=== PATIENT | male | born 1935 | race Caucasian/White ===

== ENCOUNTER 2016-12-19 11:34 | Emergency (ER) | payer MEDICARE, BC ==
[~2016-12-19] VITALS: Ht 175.3 cm; Wt 93.0 kg
[~2016-12-19 11:34] MED LIST: ASPI81 PO; ATOR40TA49 PO; CARV6.252 PO; GABA100C2 PO; OMEP20TA39 PO; PIOG15 PO; RANO500 PO; TICA90 PO
[2016-12-19 11:41] VITALS: BP 115/75; PULSE 72; RESP 16; TEMP 97.4; O2SAT 95
--- NOTE | 2016-12-19 12:09 | PD ---
HPI Chief Complaint: Dizziness Time Seen by Provider: 11:49 Travel History International Travel<30 days: No Contact w/Intl Traveler<30days: No Traveled to known affect area: No History of Present Illness HPI This patient complains of dizziness. Duration one day. Severity is moderate. He has a room spinning dizziness but not worse with movement or position change. He has a chronic severe daily headache for the last 20 years and has had extensive neurologic workup including vascular imaging and CT and MRI of the brain 5. He currently sees a neurologist for this. He reports the headache is basically the same maybe a little worse. No fever or head injury. Takes no blood thinners. He is not having vomiting. No alleviating factors. PFSH Past Medical History Hx Anticoagulant Therapy: Yes (ASA 81 MG DAILY) Anxiety: Yes Depression: Yes Heart Rhythm Problems: No Cancer: No Cardiac Catheterization: Yes Cardiovascular Problems: Yes High Cholesterol: Yes Chest Pain: Yes Congestive Heart Failure: No Cerebrovascular Accident: No Diabetes: Yes Diminished Hearing: No Genitourinary: No Headaches: Yes (11/06 stress headaches ) Hypertension: Yes Immune Disorder: No Psychiatric: Yes Reproductive: No Respiratory: Yes Migraines: No Myocardial Infarction: Yes Sleep Apnea: Yes (attempted cpap at home w/o success) Past Surgical History Abdominal Surgery: No Body Medical Devices: clip from vasectomy Cardiac Surgery: Yes (CARDIAC CATH WITH STENTING DEC 2014) Coronary Artery Bypass Graft: No Coronary Stent: Yes (12/2014) Ear Surgery: No Endocrine Surgery: No Eye Surgery: Yes (right eye cataract) Genitourinary Surgery: No Gynecologic Surgery: No Oral Surgery: No Pacemaker: No Thoracic Surgery: No Other Surgery: Yes (back surgery 1977, eyelids raised 2011) Social History Alcohol Use: No Tobacco Use: No Substance Use: No Allergies-Medications (Allergen,Severity, Reaction): Coded Allergies: No Known Allergies (Unverified , 12/19/16) Reported Meds & Prescriptions Reported Meds & Active Scripts Active Reported Gabapentin 300 Mg Cap 300 Mg PO HS Losartan (Losartan Potassium) 25 Mg Tab 25 Mg PO HS Carvedilol 6.25 Mg Tab 6.25 Mg PO BID Atorvastatin (Atorvastatin Calcium) 40 Mg Tab 40 Mg PO HS Pioglitazone (Pioglitazone HCl) 15 Mg Tab 15 Mg PO DAILY Aspirin 81 Mg Chew 81 Mg CHEW DAILY Review of Systems General / Constitutional: No: Fever Eyes: No: Visual changes HENT: Positive: Headaches, Lightheadedness Cardiovascular: No: Chest Pain or Discomfort Respiratory: No: Shortness of Breath Gastrointestinal: No: Abdominal Pain Genitourinary: No: Dysuria Musculoskeletal: No: Pain Skin: No Rash Neurologic: Positive: Dizziness, Headache, No: Weakness Psychiatric: No: Depression Endocrine: No: Polydipsia Hematologic/Lymphatic: No: Easy Bruising Physical Exam Narrative GENERAL: Well-nourished, well-developed patient in no apparent distress. SKIN: Warm and dry. HEAD: Atraumatic. Normocephalic. EYES: Pupils equal and round. No scleral icterus. No injection or drainage. ENT: No nasal bleeding or discharge. Mucous membranes pink and moist. NECK: Trachea midline. No JVD. CARDIOVASCULAR: Regular rate and rhythm. No murmur appreciated. RESPIRATORY: No accessory muscle use. Clear to auscultation. Breath sounds equal bilaterally. GASTROINTESTINAL: Abdomen soft, non-tender, nondistended. Hepatic and splenic margins not palpable. MUSCULOSKELETAL: No obvious deformities. No clubbing. No cyanosis. No edema. NEUROLOGICAL: Awake and alert. No obvious cranial nerve deficits. Motor grossly within normal limits. Normal speech. PSYCHIATRIC: Appropriate mood and affect; insight and judgment normal. Data Data Last Documented VS Vital Signs Date Time Temp Pulse Resp B/P Pulse Ox O2 Delivery O2 Flow Rate FiO2 12/19/16 13:04 58 16 107/65 97 Room Air 12/19/16 12:11 98.3 Orders Basic Metabolic Panel (Bmp) (12/19/16 12:05) Complete Blood Count With Diff (12/19/16 12:05) Ct Brain W/O Iv Contrast(Rout) (12/19/16 12:05) Ecg Monitoring (12/19/16 12:05) Iv Access Insert/Monitor (12/19/16 12:05) Oximetry (12/19/16 12:05) Sodium Chloride 0.9% Flush (Ns Flush) (12/19/16 12:15) Meclizine (Antivert) (12/19/16 12:15) Labs Laboratory Tests Test 12/19/16 12:00 White Blood Count 7.8 TH/MM3 Red Blood Count 4.59 MIL/MM3 Hemoglobin 14.5 GM/DL Hematocrit 42.3 % Mean Corpuscular Volume 92.0 FL Mean Corpuscular Hemoglobin 31.6 PG Mean Corpuscular Hemoglobin 34.3 % Concent Red Cell Distribution Width 12.7 % Platelet Count 182 TH/MM3 Mean Platelet Volume 10.1 FL Neutrophils (%) (Auto) 60.4 % Lymphocytes (%) (Auto) 22.8 % Monocytes (%) (Auto) 13.5 % Eosinophils (%) (Auto) 2.6 % Basophils (%) (Auto) 0.7 % Neutrophils # (Auto) 4.7 TH/MM3 Lymphocytes # (Auto) 1.8 TH/MM3 Monocytes # (Auto) 1.0 TH/MM3 Eosinophils # (Auto) 0.2 TH/MM3 Basophils # (Auto) 0.1 TH/MM3 CBC Comment DIFF FINAL Differential Comment Sodium Level 143 MEQ/L Potassium Level 4.1 MEQ/L Chloride Level 106 MEQ/L Carbon Dioxide Level 28.5 MEQ/L Anion Gap 9 MEQ/L Blood Urea Nitrogen 27 MG/DL Creatinine 1.10 MG/DL Estimat Glomerular Filtration 65 ML/MIN Rate Random Glucose 149 MG/DL Calcium Level 8.6 MG/DL [facility] Medical Decision Making Medical Screen Exam Complete: Yes Emergency Medical Condition: Yes Medical Record Reviewed: Yes Differential Diagnosis Positional vertigo, labyrinthitis, migraine, chronic headache Narrative Course I have reviewed the patient's electronic medical record. IV placed CBC is normal Metabolic profile is normal I reviewed his EKG which shows sinus rhythm without ectopy or ST elevation He is neurologically intact I gave him a dose of meclizine Brain CT is normal this patient is stable for outpatient follow-up. His headache is chronic daily for 20 years He does have some position change now that he thinks about it and has a room spinning dizziness consistent with positional vertigo He is neurologically intact, I'm not suspicious for CVA Diagnosis Primary Impression: Benign positional vertigo Qualified Code: H81.13 - Benign positional vertigo, bilateral Additional Impression: Headache Qualified Code: R51 - Chronic nonintractable headache, unspecified headache type Additional Instructions: The patient was advised to follow up with their physician and return if they worsen. Med/Other Pt SpecificInfo: Other Disposition: 01 DISCHARGE HOME Condition: Stable Iam Serrano MD Dec 19, 2016 12:09
[2016-12-19 12:10] VITALS: RESP 16; O2SAT 96
[2016-12-19 12:11] VITALS: BP 131/74; PULSE 64; RESP 16; TEMP 98.3; O2SAT 96
[2016-12-19] MEDS ORDERED: CARV6.252 PO (12:14)
[2016-12-19] MEDS ORDERED: GABA300C5 PO (12:14)
[2016-12-19] MEDS ORDERED: LOSA25TA PO (12:14)
[2016-12-19] MEDS ORDERED: PIOG15TA5 PO (12:14)
[2016-12-19] MEDS ORDERED: ATOR40TA16 PO (12:14)
[2016-12-19] MEDS ORDERED: ASPI81CH CHEW (12:14)
[2016-12-19] MEDS ORDERED: MECLIZINE HCL 25 MG TAB PO ONE (12:15)
[2016-12-19] MEDS ORDERED: SODIUM CHLORIDE 0.9% FLUSH 5 ML FLUSH IVF PRN (12:15)
[2016-12-19 12:55] LABS: POTASSIUM 4.1 MEQ/L (3.5-5.1)
--- NOTE | 2016-12-19 12:55 | RADHPO ---
EXAM DATE/TIME: 12/19/2016 12:39 [facility] COMPARISON: No previous studies available for comparison. INDICATIONS : Dizziness. RADIATION DOSE: 57.24 CTDIvol (mGy) MEDICAL HISTORY : Cardiovascular disease. Hypertension. Diabetes. SURGICAL HISTORY : Coronary artery stent. Bilateral cataract surgery. ENCOUNTER: Initial ACUITY: 1 day PAIN SCALE: 0/10 LOCATION: cranial TECHNIQUE: Multiple contiguous axial images were obtained of the head. Using automated exposure control and adj ustment of the mA and/or kV according to patient size, radiation dose was kept as low as reasonably a chievable to obtain optimal diagnostic quality images. FINDINGS: CEREBRUM: The ventricles are normal for age. Mild bilateral cortical atrophy characteristic for patient's age. No evidence of midline shift, mass lesion, hemorrhage or acute infarction. No extra-axial fluid eunice ections are seen. POSTERIOR FOSSA: The cerebellum and brainstem are intact. The 4th ventricle is midline. The cerebellopontine angle i s unremarkable. EXTRACRANIAL: The visualized portion of the orbits is intact. SKULL: The calvaria is intact. No evidence of skull fracture. CONCLUSION: Normal examination for a patient of this age. Alexandro Slaughter MD on December 19, 2016 at 12:53 Board Certified Radiologist. This report was verified electronically.
[2016-12-19 12:58] LABS: BICARBONATE 28.5 MEQ/L (21.0-32.0)
[2016-12-19 13:04] VITALS: BP 107/65; PULSE 58; RESP 16; O2SAT 97
[2016-12-19 13:34] LABS: AUTOMATED NEUTROPHIL # 4.7 TH/MM3 (1.8-7.7); BASOPHIL # 0.1 TH/MM3 (0-0.2); BASOPHIL % 0.7 % (0.0-2.0); EOSINOPHIL # 0.2 TH/MM3 (0-0.4); EOSINOPHIL % 2.6 % (0.0-4.0); HEMATOCRIT 42.3 % (39.0-51.0); HEMO FLAGS DIFF FINAL; LYMPH % 22.8 % (9.0-44.0); LYMPHOCYTE # 1.8 TH/MM3 (1.0-4.8); MEAN CORPUSCULAR HEMOGLOBIN 31.6 PG (27.0-34.0); MEAN CORPUSCULAR HGB CONC 34.3 % (32.0-36.0); MONO % 13.5 % (0.0-8.0); NEUT % 60.4 % (16.0-70.0); PLATELET COUNT 182 TH/MM3 (150-450); RED BLOOD COUNT 4.59 MIL/MM3 (4.50-5.90); RED CELL DISTRIBUTION WIDTH 12.7 % (11.6-17.2); WHITE BLOOD COUNT 7.8 TH/MM3 (4.0-11.0)
[2016-12-19 14:21] VITALS: BP 118/76
--- NOTE | 2016-12-20 16:00 | EKG ---
Date Performed: 12/19/2016 Time Performed: 11:56:56 PTAGE: 81 years EKG: Sinus rhythm Low QRS voltages in limb leads Compared to prior tracing no significant change Borderline ECG PREVIOUS TRACING : 03/06/2015 01.29 DOCTOR: Jero Stoll Interpretating Date/Time 12/20/2016 15:57:05
== END 2016-12-19 14:23 | disposition home or self-care (01) ==
LOC: PHED 11:34
DX: H81.13 Benign paroxysmal vertigo, bilateral (principal); R51 Headache; F41.8 Other specified anxiety disorders; E78.00 Pure hypercholesterolemia, unspecified; E11.9 Type 2 diabetes mellitus without complications; I10 Essential (primary) hypertension; I25.2 Old myocardial infarction; Z79.82 Long term (current) use of aspirin
CPT/HCPCS: 70450; 80048; 85025; 93005

== ENCOUNTER → 2017-09-24 | Outpatient (CLI) | payer MEDICARE, BC ==
[~2017-09-24] MED LIST changes: +ADJUSTABLE COMM1 MIS; +ASPI-516 CHEW; -ASPI81 PO; +ATOR40TA16 PO; -ATOR40TA49 PO; -GABA100C2 PO; +GABA300C5 PO; +HYDR-3580 PO; +LOSA25TA PO; +METO1TAB42 PO; -OMEP20TA39 PO; -PIOG15 PO; +PIOG15TA5 PO; -RANO500 PO; -TICA90 PO; +WALKER WHEELS/F1 MIS; +XARE10TA PO
[2017-09-24 09:13] LABS: BLOOD, URINE NEG (NEG); COMMENT (UR) CULT NOT INDICATED; CULTURE IF INDICATED CULT NOT INDICATED; GLUCOSE,URINE NEG (NEG); HYALINE CAST, URINE 1 /lpf (RARE); KETONE, URINE NEG (NEG); MUCUS URINE FEW /lpf (OCC); NITRITE,URINE NEG (NEG); PH, URINE 5.5 (5.0-8.5); SQUAMOUS EPITHELIAL CELL URINE <1 /hpf (0-5); URINE COLOR YELLOW (YELLW/STRAW)
[2017-09-24 09:14] LABS: AUTOMATED NEUTROPHIL # 5.6 TH/MM3 (1.8-7.7); BASOPHIL # 0.1 TH/MM3 (0-0.2); BASOPHIL % 0.8 % (0.0-2.0); EOSINOPHIL # 0.2 TH/MM3 (0-0.4); HEMATOCRIT 44.2 % (39.0-51.0); HEMO FLAGS DIFF FINAL; LYMPH % 21.2 % (9.0-44.0); LYMPHOCYTE # 1.9 TH/MM3 (1.0-4.8); MEAN CELL VOLUME 93.9 FL (80.0-100.0); MEAN CORPUSCULAR HEMOGLOBIN 31.6 PG (27.0-34.0); MEAN CORPUSCULAR HGB CONC 33.7 % (32.0-36.0); MONO % 12.7 % (0.0-8.0); NEUT % 63.3 % (16.0-70.0); PLATELET COUNT 189 TH/MM3 (150-450); RED BLOOD COUNT 4.71 MIL/MM3 (4.50-5.90); RED CELL DISTRIBUTION WIDTH 13.4 % (11.6-17.2); WHITE BLOOD COUNT 8.8 TH/MM3 (4.0-11.0)
[2017-09-24 09:20] LABS: APTT (PATIENT) 28.1 SEC (24.3-30.1)
[2017-09-24 09:43] LABS: BICARBONATE 28.9 MEQ/L (21.0-32.0)
== END ==
LOC: CPRE 07:59
PROVIDERS: ATTEND Orthopaedic Surgery Orthopaedic Surgery of the Spine
DX: Z01.812 Encounter for preprocedural laboratory examination (principal); M16.12 Unilateral primary osteoarthritis, left hip; Z79.01 Long term (current) use of anticoagulants
CPT/HCPCS: 36415; 80048; 81001; 85025; 85610; 85730

== ENCOUNTER 2017-10-02 08:22 | Inpatient (IN) | payer MEDICARE, BC ==
[~2017-10-02] VITALS: Ht 175.3 cm; Wt 90.0 kg
[~2017-10-02 08:22] MED LIST changes: -ADJUSTABLE COMM1 MIS; -HYDR-3580 PO; -METO1TAB42 PO; -WALKER WHEELS/F1 MIS; -XARE10TA PO
[2017-10-02] MEDS ORDERED: METOPROLOL TARTRATE 25 MG TAB PO PRN (08:45)
[2017-10-02] MEDS ORDERED: VANCOMYCIN 1000 MG/NS 250 ML (for <70 kg) IV SCH ×2 (08:45)
[2017-10-02] MEDS ORDERED: POVIDONE IODINE 7.5% SCRUB 118 ML BOTTLE TOPICAL SCH (08:45)
[2017-10-02] MEDS ORDERED: ceFAZolin 2 GM PREMIX 50 ML IV SCH (08:45)
[2017-10-02] MEDS ORDERED: SODIUM CHLORID 0.9% 500 ML IV PRN (08:45)
[2017-10-02] MEDS ORDERED: INSULIN HUMAN REGULAR 1,000 UNITS/10 ML VIAL SQ PRN (08:45)
[2017-10-02] MEDS ORDERED: LACTATED RINGER'S 1000 ML IV PRN (08:45)
[2017-10-02] MEDS ORDERED: POVIDONE IODINE 5% (ANTISEPSIS KIT) 4 APPLICATIONS EACH NARE PRN (08:45)
[2017-10-02] MEDS ORDERED: CHLORHEXIDINE GLUCONATE 2 % 1 PACK (2 CLOTHS) TOPICAL PRN (08:45)
[2017-10-02] MEDS ORDERED: SODIUM CHLORIDE 0.9% IV SCH (09:00)
[2017-10-02] MEDS ORDERED: TRANEXAMIC ACID IV SCH (09:00)
[2017-10-02] MEDS ORDERED: EXPAREL PERI-ARTICULAR INJECTION (TOTAL VOL. 60 ML) P-ARTICULR SCH ×2 (09:00)
[2017-10-02] MEDS ORDERED: METO1TAB42 PO (09:13)
[2017-10-02] MEDS ORDERED: HYDROmorphone HCL PF 2 MG/ML VIAL ONE (10:39)
[2017-10-02] MEDS ORDERED: GENTAMICIN SULFATE 80 MG/2 ML VIAL ONE (11:30)
[2017-10-02] MEDS ORDERED: PHENYLEPH/NS 1000 MCG/10 ML SYR IV ONE (12:00)
[2017-10-02] MEDS ORDERED: PROPOFOL 200 MG/20 ML AMP IV ONE (12:00)
[2017-10-02] MEDS ORDERED: DEXAMETHASONE SOD PHOS 4 MG/ML VIAL IV ONE (12:00)
[2017-10-02] MEDS ORDERED: NEOSTIGMINE 3 MG/3 ML SYR IV ONE (12:00)
[2017-10-02] MEDS ORDERED: LIDOCAINE HCL 1% PF 5 ML AMPULE OTHER ONE (12:00)
[2017-10-02] MEDS ORDERED: ePHEDrine/NS 25 MG/5 ML SYR IV ONE (12:00)
[2017-10-02] MEDS ORDERED: GLYCOPYRROLATE 1 MG/5 ML SYRINGE IV PUSH ONE (12:00)
[2017-10-02] MEDS ORDERED: ROCURONIUM INJ 50 MG/5 ML SYRINGE IV PUSH ONE (12:00)
[2017-10-02] MEDS ORDERED: LACTATED RINGER'S 1000 ML INJ 1,000 ML IV ONE (12:00)
[2017-10-02] MEDS ORDERED: ONDANSETRON HCL 4 MG/2 ML VIAL IV PUSH ONE (12:00)
--- NOTE | 2017-10-02 13:43 | PD.OP ---
cc: Dayo Francisco MD Operative Report Date of Surgery: Oct 02, 2017 Preoperative Diagnosis: Right his left hip Postoperative Diagnosis: Same Procedure: Left total hip replacement arthroplasty, anterior exposure Anesthesia: Gen. Surgeon: Dayo Francisco [employer] Teacher(s): LUPE Powell Operation and Findings: EBL: 450 cc INDICATION: This patient presents with significant hip pain related to severe osteoarthritis. Despite extensive conservative care this patient continues to be painful and now presents for surgical treatment. NOTE: Lacey Powell PA-C was present for the entire surgical procedure as my professional nursing assistant. In my medical opinion her skill and care was necessary for the proper management of this patient. COMPONENTS: COMPANY: [employer] CUP: [place], 56 mm, 100 series, gription surface LINER: Altrx 36, neutral STEM: Corail, size 12, high offset, hydroxyapatite-coated HEAD: Metal, 36, +5, 12/14 taper PROCEDURE: This patient was brought to the operating room and anesthetized in the supine position and positioned on the fracture table with both legs held extended. The left hip and leg was scrubbed with alcohol followed by Hibiclens followed by ChloraPrep and draped sterilely. Antibiotics were given within routine time window and a timeout was done. A 4 inch incision was made starting 2 cm distal and 2 cm lateral to the anterior superior iliac spine. The fascia rosaura was opened longitudinally. The interval between the fascia rosaura and the rectus was opened down to the capsule of the hip joint. Retractors were positioned allowing good visualization of the capsule. This was opened longitudinally and flaps were created. Stay sutures were utilized. Exposure was excellent. The neck was cut at the proper location using fluoroscopy as a guide. The head was removed. Deep retractors were positioned allowing good visualization of the acetabulum. Acetabulum was deepened down to the floor starting with a proper size reamer and reaming up to 55 mm. A trial was utilized. Fluoroscopy was used to check position and confirmed satisfactory alignment. The rim was reamed with a 56 mm reamer and the final cup was positioned in approximately 20 of anteversion and 40-45 of abduction. Position was satisfactory. A single hole eliminator was positioned followed by the final liner. The lifting hook was utilized. The leg was dropped to the floor, maximally externally rotated and brought across the midline. Retractors were positioned. A box osteotome was utilized followed by progressive broaching to the proper stem size. Trial reduction showed excellent alignment and fit. With 60 of external rotation the leg was dropped to the floor without evidence of anterior subluxation. The wound was irrigated. The final stem was inserted and was found to be very stable. The final reduction using the final head. Stability was as previously noted. Intraoperative x-rays were taken. The wound was irrigated copiously. Hemostasis was controlled. Local anesthesia was utilized. The capsule was repaired with #2 Tycron sutures. The fascia rosaura was repaired with running 0 PDS on a loop. Subcutaneous tissue was approximated with 2-0 Vicryl and skin with running intradermal 3-0 Vicryl followed by Steri-Strips. A sterile dressing was applied. The patient was awakened and taken to the recovery room in satisfactory condition. FINDINGS: There was severe osteoarthritis of the left hip. The final solution was excellent. There was some mismatch of geometry with a tight canal and a champagne flute type geometry. Additional bone grafting was placed around the stem proximally to ensure and even tighter fit. The overall solution appeared be very satisfactory Dayo Francisco MD Oct 02, 2017 13:43
[2017-10-02] MEDS ORDERED: ACETAMINOPHEN/HYDROcodone 325 MG/7.5 MG TAB PO PRN (13:45)
[2017-10-02] MEDS ORDERED: MISCELLANEOUS NURSING INFORMATION XX PRN (13:45)
[2017-10-02] MEDS ORDERED: MORPHINE SULFATE 8 MG/ML INJ IM PRN (13:45)
[2017-10-02] MEDS ORDERED: NALOXONE HCL 0.4 MG/ML AMP IV PUSH PRN (13:45)
[2017-10-02] MEDS ORDERED: Post-op Orders (for Pharmacy) MISC XX ONE (13:45)
[2017-10-02] MEDS ORDERED: XARE10TA PO (13:46)
[2017-10-02] MEDS ORDERED: HYDR-3580 PO (13:46)
[2017-10-02] MEDS ORDERED: DO NOT ADM ANY ANTICOAGULANT DRUGS PRN (13:51)
[2017-10-02] MEDS ORDERED: MORPHINE SULFATE 30 MG/30 ML PCA IV SCH (14:00)
[2017-10-02] MEDS ORDERED: SODIUM CHLORIDE 0.9% FLUSH 10 ML FLUSH IV FLUSH PRN (14:00)
[2017-10-02] MEDS ORDERED: TRANEXAMIC ACID IV ONE (14:30)
[2017-10-02] MEDS ORDERED: SODIUM CHLORIDE 0.9% IV ONE (14:30)
--- NOTE | 2017-10-02 14:30 | RADRPT ---
EXAM DATE/TIME: 10/02/2017 11:53 [facility] COMPARISON: No previous studies available for comparison. INDICATIONS : Left total hip replacement. MEDICAL HISTORY : Cardiovascular disease. Hypertension. Diabetes. SURGICAL HISTORY : Coronary artery stent. Bilateral cataract surgery. ENCOUNTER: Initial ACUITY: 1 day PAIN SCORE: Non-responsive. LOCATION: Left Hip FINDINGS: 2 magnified C. arm spot views are centered over the hip and labeled left. A total hip prosthesis is i n good position. No gross fractures observed. Air is noted within the joint. CONCLUSION: Total hip prosthesis in good position. William Chase Jr., MD on October 02, 2017 at 14:27 Board Certified Radiologist. This report was verified electronically.
[2017-10-02] MEDS: LACTATED RINGER'S 1000 ML INJ 1,000 ML IV SCH (15:00)
[2017-10-02 15:59] VITALS: BP 101/50; PULSE 67; RESP 17; TEMP 95.3; O2SAT 97
[2017-10-02 20:36] VITALS: BP 118/58; PULSE 76; RESP 17; TEMP 96.4; O2SAT 97
[2017-10-02 20:41] VITALS: O2SAT 97
[2017-10-02] MEDS ORDERED: WALKER WHEELS/F1 MIS (20:49)
[2017-10-02] MEDS ORDERED: ADJUSTABLE COMM1 MIS (20:50)
--- NOTE | 2017-10-02 20:50 | HHI.DCPOC ---
Discharge Care Plan Diagnosis: (1) Osteoarthritis of left hip Your Health Problems Are: Incision/Drains Inflammation Goals to Promote Your Health * To prevent worsening of your condition and complications * To maintain your health at the optimal level Directions to Meet Your Goals Take your medications as prescribed Follow your dietary instruction Follow activity as directed Keep your appointments as scheduled Take your immunizations and boosters as scheduled If your symptoms worsen call your PCP, if no PCP go to Urgent Care Center or Emergency Room Smoking is Dangerous to Your Health. Avoid second hand smoke Call the 24-hour hour crisis hotline for domestic abuse at Kaylee De La Cruz Oct 02, 2017 20:50
--- NOTE | 2017-10-02 20:56 | HHI.DS ---
Discharge Summary Admission Date Oct 02, 2017 at 08:22 Discharge Date: Oct 04, 2017 Admitting Diagnosis see below Diagnosis: (1) Osteoarthritis of left hip Diagnosis: Principal ICD Codes: M16.12 - Unilateral primary osteoarthritis, left hip Procedures Left total hip arthroplasty, Direct anterior approach Brief History This is a 81 year old male patient with a multi-year history of left hip pain. This began to increase approximately 1 1/2 years ago. He sought out treatment for an inguinal hernia but after surgical repair found his groin pain to continue. He was treated for a low back condition which called for further investigation of the pelvic structures. Xrays of the hip and pelvis were performed showing substantial hip arthritis. He had a cortisone injection which provided little relief. He continued to use over the counter medications and also sought out home health care worker. [place] it was recommended he consider total hip arthroplasty. He declined at the time as he would be returning to [place]. On return, imaging studies were repeated. Left total hip arthroplasty, direct anterior approach, was recommended and the patient elected to move forward. He now presents for the above procedure. Hospital Course Surgical treatment was performed on the day of admission without complication. He recovered well in PACU and was transferred to the orthopaedic floor. Pain was controlled with IV and oral medications. DVT prophylaxis was initiated pod# 1 with Xarelto. He was compliant with physical therapy and all restrictions including GEMINI protocols. After 2 days he was found to be stable and discharged home with home health care. He was instructed to continue his therapy, pursue a high fiber diet and to continue his xarelto for an additional 30 days. He was given a prescription of [place] for pain. Pt Condition on Discharge: Stable Discharge Disposition: Disch w/ Home Health Serv Discharge Instructions Diet Instructions: As Tolerated, No Restrictions, High Fiber Diet Activities You Can Perform: Weight Bearing as Casey Activities to Avoid: Strenuous Activity Additional Activity Instruc.: GEMINI, anterior precautions New Medications: Adjustable Commode 3-in-1 (Adjustable Commode 3-in-1) 1 Mis Mis EA .ROUTE DIRECTED, #1 Walker with Front Wheels (Walker with Front Wheels) 1 Mis Mis EA .ROUTE DIRECTED, #1 0 Refills Hydrocodone/Acetaminophen (Hydrocodone-Acetamin 7.5-325) 7.5 Mg-325 Mg Tablet 1 TAB PO Q4H PRN for PAIN, #50 TAB Rivaroxaban (Xarelto) 10 Mg Tab 10 MG PO Q24H for Prevent Blood Clot, #25 TAB Continued Medications: Aspirin (Aspirin) 81 Mg Chew 81 MG CHEW DAILY, TAB 0 Refills Atorvastatin (Atorvastatin) 40 Mg Tab 40 MG PO HS for Cholesterol Management, #30 TAB 0 Refills Gabapentin (Gabapentin) 300 Mg Cap 300 MG PO HS, #30 CAP 0 Refills Losartan (Losartan) 25 Mg Tab 25 MG PO HS for Blood Pressure Management, #30 TAB 0 Refills Metoprolol Succinate ER 24 HR (Metoprolol Succinate ER 24 HR) 25 Mg Tab 25 MG PO DAILY, #30 TAB 0 Refills Pioglitazone (Pioglitazone) 15 Mg Tab 15 MG PO DAILY for Blood Sugar Management, #30 TAB 0 Refills Kaylee De La Cruz Oct 02, 2017 20:56
--- NOTE | 2017-10-02 20:58 | HHI.FF ---
Face to Face Verification Diagnosis: (1) Osteoarthritis of left hip Physical Therapy Gait training, Safety evaluation, Transfer training, bed to chair Hip: Total hip, Progress to weight bearing Knee: Protocol: Right Left LE Weight Bearing: WB as tolerated Additional Instructions PT 4 days/wk for 2 weeks. WBAT Left LE. Anterior GEMINI protocol. Improve gait and balance, LE strengthening. Walker as needed. Nursing RN Days per Week: 2 x Week(s): 1 Dressing Changes: Do not change dressing Additional Instructions VItals assessment. Dressing assessment - do not change unless saturated or erythema. I have seen patient Marco A Marcelo, III on 10/02/17. My clinical findings support the need for the requested home health care services because: Limited ability to care for self High risk of falls I certify that my clinical findings support that this patient is homebound because: Post-op weakness Unsteady gait/balance Kaylee De La Cruz Oct 02, 2017 20:58
[2017-10-02] MEDS: LOSARTAN 25 MG TAB PO SCH (21:36)
[2017-10-02] MEDS: MAGNESIUM HYDROXIDE SUSP 30 ML CUP PO SCH (21:36)
[2017-10-02] MEDS: ATORVASTATIN 40 MG TAB PO SCH (21:36)
[2017-10-02] MEDS: GABAPENTIN 300 MG CAP PO SCH (21:36)
[2017-10-02] MEDS: SODIUM CHLORIDE 0.9% FLUSH 10 ML FLUSH IV FLUSH SCH (21:37)
[2017-10-02] MEDS: SENNOSIDES 8.6 MG TAB PO SCH (21:37)
[2017-10-02] MEDS: PCA - TOTAL MG MORPHINE DELIVERED PER SHIFT SCH (21:37)
[2017-10-03 00:31] VITALS: BP 119/59; PULSE 86; RESP 17; TEMP 96.7; O2SAT 97
[2017-10-03] MEDS: LACTATED RINGER'S 1000 ML INJ 1,000 ML IV SCH ×2 (02:30→15:00)
[2017-10-03 04:27] VITALS: BP 112/56; PULSE 92; RESP 17; TEMP 96.7; O2SAT 97
[2017-10-03] MEDS: PCA - TOTAL MG MORPHINE DELIVERED PER SHIFT SCH ×2 (05:54→14:00)
[2017-10-03 07:41] VITALS: BP 102/51; PULSE 97; RESP 18; TEMP 98.3; O2SAT 99
[2017-10-03 08:55] LABS: HEMATOCRIT 32.7 % (39.0-51.0); REVIEW FLAG FINAL
[2017-10-03] MEDS: SODIUM CHLORIDE 0.9% FLUSH 10 ML FLUSH IV FLUSH SCH ×2 (09:00→20:47)
[2017-10-03] MEDS: METOPROLOL SUCCINATE 25 MG EXTENDED RELEASE TAB PO SCH (09:43)
[2017-10-03] MEDS: MAGNESIUM HYDROXIDE SUSP 30 ML CUP PO SCH ×2 (09:43→20:47)
[2017-10-03] MEDS: PIOGLITAZONE HCL 15 MG TAB PO SCH (09:43)
[2017-10-03 12:00] VITALS: BP 125/63; PULSE 96; RESP 18; TEMP 98.7; O2SAT 93
--- NOTE | 2017-10-03 13:47 | PD.ORT.PN ---
Subjective Subjective Remarks Patient states he has limited his use of pain pills. He was very sore w PT this morning but has not taken anything since. He has his teague cath removed 2- 3 hours ago and has not urinated since that time. No other complaints. Questions discharge today or tomorrow. He denies any new symptoms, chest pain or shortness of breath. Objective Vitals Vital Signs Date Time Temp Pulse Resp B/P (MAP) Pulse Ox O2 Delivery O2 Flow Rate FiO2 10/03/17 13:05 21 10/03/17 12:00 98.7 96 18 125/63 (83) 93 10/03/17 07:41 98.3 97 18 102/51 (68) 99 10/03/17 05:54 18 10/03/17 04:27 96.7 92 17 112/56 (74) 97 10/03/17 00:31 96.7 86 17 119/59 (79) 97 10/02/17 21:37 18 10/02/17 20:41 97 Nasal Cannula 2.00 10/02/17 20:36 96.4 76 17 118/58 (78) 97 10/02/17 15:59 95.3 67 17 101/50 (67) 97 10/02/17 15:29 97.7 73 12 100/53 (69) 98 Nasal Cannula 2 10/02/17 15:15 63 14 107/55 (72) 98 Nasal Cannula 2 10/02/17 15:01 15 10/02/17 15:00 65 14 100/47 (64) 98 Nasal Cannula 2 10/02/17 14:45 61 18 111/54 (73) 97 Nasal Cannula 2 10/02/17 14:30 60 15 128/57 (80) 96 Nasal Cannula 2 10/02/17 14:15 65 18 95/53 (67) 97 Nasal Cannula 2 10/02/17 14:00 77 16 121/61 (81) 97 Nasal Cannula 2 10/02/17 13:57 97.5 87 16 143/64 (90) 97 Nasal Cannula 2 I/O 10/02/17 10/02/17 10/02/17 10/03/17 10/03/17 10/03/17 07:00 15:00 23:00 07:00 15:00 23:00 Intake Total 1450 ml 572 ml 240 ml Output Total 3800 ml 400 ml 550 ml Balance -2350 ml 172 ml -310 ml Intake Oral 240 ml 240 ml IV Total 1450 ml 332 ml Output Urine Total 350 ml 400 ml 550 ml Estimated Blood Loss 450 ml Other 3000 ml # Bowel Movements 0 0 Result Diagram: 10/03/17 0728 Procedures Left total hip arthroplasty, Direct anterior approach Objective Remarks Sitting up in bed at bedside NAD LLE Dressing c/d/i, no new drainage, mild swelling, no erythema +motor at bilaterally, +sens, +nvi Neg homans bilaterally Assessment & Plan Ortho Post Op Day #: 1 Problem List: (1) Osteoarthritis of left hip ICD Codes: M16.12 - Unilateral primary osteoarthritis, left hip Qualifiers: Qualified Codes: M16.12 - Unilateral primary osteoarthritis, left hip Assessment and Plan pod#1 s/p L GEMINI, anterior Ortho stable. Possible urinary retention. I spoke to his RN. If he does not urinate in the next 6 hours consider bladder scan and straight cath. PO pain meds as needed. PT - WBAT RLE. Xarelto 10mg qd. Hold dressing changes unless saturated. D/C planning, home w [facility] tomorrow if stable. F2F written. Kaylee De La Cruz Oct 03, 2017 13:47
[2017-10-03] MEDS ORDERED: MISCELLANEOUS PHARMACY INFORMATION XX ONE (14:00)
[2017-10-03] MEDS: RIVAROXABAN 10 MG TAB PO SCH (15:31)
[2017-10-03] MEDS: ACETAMINOPHEN/HYDROcodone 325 MG/7.5 MG TAB PO PRN ×2 (15:31→23:44)
[2017-10-03 16:00] VITALS: BP 139/64; PULSE 97; RESP 18; TEMP 97; O2SAT 95
[2017-10-03] MEDS: GABAPENTIN 300 MG CAP PO SCH (20:46)
[2017-10-03] MEDS: SENNOSIDES 8.6 MG TAB PO SCH (20:46)
[2017-10-03] MEDS: LOSARTAN 25 MG TAB PO SCH (20:46)
[2017-10-03] MEDS: ATORVASTATIN 40 MG TAB PO SCH (20:47)
[2017-10-04] VITALS: BP 112/62; PULSE 88; RESP 16; TEMP 99.4; O2SAT 92
[2017-10-04] MEDS: LACTATED RINGER'S 1000 ML INJ 1,000 ML IV SCH (03:30)
[2017-10-04 08:00] VITALS: BP 112/72; PULSE 83; RESP 17; TEMP 99.8; O2SAT 94
--- NOTE | 2017-10-04 08:26 | PD.ORT.PN ---
Subjective Subjective Remarks Doing better today. Urinating well. Still limiting his use of pain pills but they are helpful. No other complaints. He denies any new symptoms, chest pain or shortness of breath. He is ready for discharge Objective Vitals Vital Signs Date Time Temp Pulse Resp B/P (MAP) Pulse Ox O2 Delivery O2 Flow Rate FiO2 10/04/17 08:00 99.8 83 17 112/72 (85) 94 10/04/17 00:00 99.4 88 16 112/62 (79) 92 10/03/17 19:45 21 10/03/17 16:41 16 10/03/17 16:00 97.0 97 18 139/64 (89) 95 10/03/17 14:00 16 10/03/17 13:05 21 10/03/17 12:00 98.7 96 18 125/63 (83) 93 I/O 10/03/17 10/03/17 10/03/17 10/04/17 10/04/17 10/04/17 07:00 15:00 23:00 07:00 15:00 23:00 Intake Total 440 ml 600 ml 480 ml Output Total 550 ml 300 ml Balance -110 ml 300 ml 480 ml Intake Oral 240 ml 600 ml 480 ml IV Total 200 ml Output Urine Total 550 ml 300 ml # Voids 3 # Bowel Movements 0 0 0 Result Diagram: 10/03/17 0728 Procedures Left total hip arthroplasty, Direct anterior approach Objective Remarks Sitting up in bed NAD LLE Dressing c/d/i, no drainage, mild swelling, no erythema +motor at bilaterally, +sens, +nvi Neg homans bilaterally Assessment & Plan Ortho Post Op Day #: 2 Problem List: (1) Osteoarthritis of left hip ICD Codes: M16.12 - Unilateral primary osteoarthritis, left hip Qualifiers: Qualified Codes: M16.12 - Unilateral primary osteoarthritis, left hip Assessment and Plan pod#2 s/p L GEMINI, anterior Ortho stable. Ok to d/c home today after PT. Home w [facility]. Urinary retention resolved. Satisfactory output last 24 hours. PO pain meds as needed. PT - WBAT RLE. Xarelto 10mg qd. Hold dressing changes unless saturated. F/U in 2 weeks as scheduled. F2F written. Kaylee De La Cruz Oct 04, 2017 08:26
[2017-10-04] MEDS: SODIUM CHLORIDE 0.9% FLUSH 10 ML FLUSH IV FLUSH SCH (09:00)
[2017-10-04] MEDS: MAGNESIUM HYDROXIDE SUSP 30 ML CUP PO SCH (10:41)
[2017-10-04] MEDS: METOPROLOL SUCCINATE 25 MG EXTENDED RELEASE TAB PO SCH (10:41)
[2017-10-04] MEDS: PIOGLITAZONE HCL 15 MG TAB PO SCH (10:41)
[2017-10-04] MEDS: ACETAMINOPHEN/HYDROcodone 325 MG/7.5 MG TAB PO PRN ×2 (11:56→15:56)
[2017-10-04 12:00] VITALS: BP 110/71; PULSE 94; RESP 17; TEMP 99.4; O2SAT 94
[2017-10-04] MEDS: RIVAROXABAN 10 MG TAB PO SCH (13:40)
[2017-10-04] MEDS: SENNOSIDES 8.6 MG TAB PO SCH (15:48)
== END 2017-10-04 16:09 | disposition home health service (06) | DRG 470 ==
LOC: HSDI 08:22 → N06A 15:39
PROVIDERS: ADMIT Orthopaedic Surgery Orthopaedic Surgery of the Spine; ATTEND Orthopaedic Surgery Orthopaedic Surgery of the Spine
PROC: 0SRB01A Replacement of Left Hip Joint with Metal Synthetic Substitute, Uncemented, Open Approach (ICD-10-PCS; principal; 2017-10-02 10:42)
DX: M16.12 Unilateral primary osteoarthritis, left hip (principal); E11.9 Type 2 diabetes mellitus without complications; I10 Essential (primary) hypertension; E78.00 Pure hypercholesterolemia, unspecified; M47.817 Spondylosis without myelopathy or radiculopathy, lumbosacral region; I25.2 Old myocardial infarction; R33.9 Retention of urine, unspecified
CPT/HCPCS: 73502; 76000; 85014; 85018; 86850; 86900; 86901; 86920; 94150; C1776; C9290; J0690; J1100; J1170; J1580; J2270; J2370; J2405; J2710; J3010; J3370; J7050; J7120

== ENCOUNTER 2018-03-17 19:18 | Emergency (ER) | payer MEDICARE, BC ==
[~2018-03-17] VITALS: Ht 175.3 cm; Wt 95.9 kg
[~2018-03-17 19:18] MED LIST changes: +ADJUSTABLE COMM1 MIS; -CARV6.252 PO; +HYDR-3580 PO; +METO1TAB42 PO; +WALKER WHEELS/F1 MIS; +XARE10TA PO
[2018-03-17 19:26] VITALS: BP 152/78; PULSE 84; RESP 18; TEMP 97.9; O2SAT 96
[2018-03-17] MEDS ORDERED: GABA300C5 PO (19:35)
--- NOTE | 2018-03-17 19:43 | PD ---
HPI Chief Complaint: Injury Time Seen by Provider: 19:36 Travel History International Travel<30 days: No Contact w/Intl Traveler<30days: No Traveled to known affect area: No History of Present Illness HPI 82-year-old male presents to the emergency department for evaluation of left foot injury that occurred yesterday. He states he tripped and fell, injuring his left foot. He denies any head injury or LOC. No neck pain or back pain. No chest pain or abdominal pain. No vomiting. No hip or pelvic pain. Patient states the current pain is 5/10. Ambulation exacerbates pain. Keep an foot still will help alleviate pain. Reports swelling and bruising. Moderate severity. PFSH Past Medical History Hx Anticoagulant Therapy: Yes (ASA 81 MG DAILY) Anxiety: Yes Depression: Yes Heart Rhythm Problems: No Cancer: No Cardiac Catheterization: Yes Cardiovascular Problems: Yes (SD, CARDIAC STENT) High Cholesterol: Yes Chest Pain: Yes Congestive Heart Failure: No Cerebrovascular Accident: No Diabetes: Yes Patient Takes Glucophage: No Diminished Hearing: No Endocrine: Yes Genitourinary: No Headaches: Yes Hepatitis: No Hiatal Hernia: No Hypertension: Yes Immune Disorder: No Musculoskeletal: Yes (OA) Neurologic: Yes (STRESS HEADACHES, HX BULGING DISK) Psychiatric: No Reproductive: No Respiratory: Yes (SLEEP APNEA) Immunizations Current: Yes Migraines: No Myocardial Infarction: Yes Sleep Apnea: Yes (attempted cpap at home w/o success) Thyroid Disease: No Tetanus Vaccination: < 5 Years Influenza Vaccination: No Past Surgical History Abdominal Surgery: Yes (INGUINAL HERNIA REPAIR) AICD: No Body Medical Devices: clip from vasectomy, CARDIAC STENT Cardiac Surgery: Yes (CARDIAC CATH WITH STENTING DEC 2014) Coronary Artery Bypass Graft: No Coronary Stent: Yes (12/2014) Ear Surgery: No Endocrine Surgery: No Eye Surgery: Yes (BILATERAL CATARACT SX) Genitourinary Surgery: Yes (VASECTOMY) Gynecologic Surgery: No Joint Replacement: No Neurologic Surgery: Yes (LUMBAR LAMINECTOMY) Oral Surgery: No Pacemaker: No Thoracic Surgery: No Other Surgery: Yes (back surgery 1977, eyelids raised 2011) Social History Alcohol Use: No Tobacco Use: No Substance Use: No Allergies-Medications (Allergen,Severity, Reaction): Coded Allergies: No Known Allergies (Verified Allergy, Unknown, 03/17/18) Reported Meds & Prescriptions Reported Meds & Active Scripts Active Reported Gabapentin 300 Mg Cap 300 Mg PO BID Metoprolol Succinate ER 24 HR (Metoprolol Succinate) 25 Mg Tab 25 Mg PO BID Losartan (Losartan Potassium) 25 Mg Tab 25 Mg PO HS Atorvastatin (Atorvastatin Calcium) 40 Mg Tab 40 Mg PO HS Pioglitazone (Pioglitazone HCl) 15 Mg Tab 15 Mg PO DAILY Aspirin 81 Mg Chew 81 Mg CHEW DAILY Review of Systems Except as stated in HPI: all other systems reviewed are Neg Physical Exam Narrative GENERAL: Well-nourished, well-developed elderly male patient, afebrile. SKIN: Focused skin assessment warm/dry. Patient is ecchymosis to the left dorsal foot just proximal to the digits. HEAD: Normocephalic. Atraumatic. EYES: No scleral icterus. No injection or drainage. NECK: Supple, trachea midline. No JVD or lymphadenopathy. CARDIOVASCULAR: Regular rate and rhythm without murmurs, gallops, or rubs. Left pedal pulses 2+. RESPIRATORY: Breath sounds equal bilaterally. No accessory muscle use. Lung sounds are clear to auscultation. GASTROINTESTINAL: Abdomen soft, non-tender, nondistended. MUSCULOSKELETAL: No cyanosis. Patient has tenderness to palpation over left plantar and dorsal foot just proximal to the digits. Swelling is noted to left foot. No obvious deformity. BACK: Nontender without obvious deformity. No CVA tenderness. Data Data Last Documented VS Vital Signs Date Time Temp Pulse Resp B/P (MAP) Pulse Ox O2 Delivery O2 Flow Rate FiO2 03/17/18 19:35 (102) 03/17/18 19:26 97.9 84 18 96 Orders Orders Foot, Complete ([id number]) (03/17/18 ) Ice/Cold Pack (03/17/18 19:40) [facility] Medical Decision Making Medical Screen Exam Complete: Yes Emergency Medical Condition: Yes Medical Record Reviewed: Yes Interpretation(s) x-ray left foot - CONCLUSION: 1. Subtle cortical step-off in the medial distal fourth proximal phalanx which may reflect a subtle nondisplaced fracture. Correlation with physical exam is recommended. Differential Diagnosis Fracture versus contusion versus sprain Narrative Course 82-year-old male presents to the emergency department for evaluation of left foot injury that occurred yesterday morning. Ice pack is applied. X-ray of the left foot is ordered and pending. X-ray of the left foot shows a septal cortical step-off in the medial distal fourth proximal phalanx which may represent a subtle nondisplaced fracture, correlation with physical exam is recommended. Patient is tender over this area. Toe is abby taped and postop she was applied. Patient started to continue Tylenol or and his Aleve [id number] as needed and follow-up with a early years teacher. Patient will be given the name and number of our early years teacher manager business operations. The patient was discharged in stable condition with instructions, including return instructions and follow up instructions. Diagnosis Primary Impression: Fracture of proximal phalanx of toe Referrals: Joseph Herrera DPBoris call for appointment Patient Instructions: General Instructions, Toe Fracture (ED) Additional Instructions: Ice for 20 minutes 4-5 times daily Tylenol/Aleve [id number] as needed for pain Wear postop shoe. Follow-up with podiatry. Dr. Herrera is the early years teacher manager business operations. Return to the emergency department for any acute worsening of symptoms. Med/Other Pt SpecificInfo: No Change to Meds Disposition: 01 DISCHARGE HOME Condition: Stable Sarita Vega Mar 17, 2018 19:43
--- NOTE | 2018-03-17 20:12 | RADRPT ---
EXAM DATE/TIME: 03/17/2018 19:48 [facility] COMPARISON: No previous studies available for comparison. INDICATIONS : Patient complains of pain in all of his left metatarsals after tripping yesterday. MEDICAL HISTORY : None. SURGICAL HISTORY : None. ENCOUNTER: Initial ACUITY: 2 days PAIN SCORE: 5/10 LOCATION: Left foot FINDINGS: Three view examination of the left foot demonstrates a subtle cortical step-off in the medial fourth proximal phalanx distally. Remaining osseous structures are intact. Calcaneal spurring. The tarsal yelena mariana appear intact. The interphalangeal and metatarsophalangeal joints are intact. The calcaneus is intact. Bony mineralization is normal. CONCLUSION: 1. Subtle cortical step-off in the medial distal fourth proximal phalanx which may reflect a subtle n ondisplaced fracture. Correlation with physical exam is recommended. Jax Bryant MD on March 17, 2018 at 20:07 Board Certified Radiologist. This report was verified electronically.
== END 2018-03-17 20:30 | disposition home or self-care (01) ==
LOC: PHEFT 19:18
DX: S92.515A Nondisplaced fracture of proximal phalanx of left lesser toe(s), initial encounter for closed fracture (principal); E11.9 Type 2 diabetes mellitus without complications; I10 Essential (primary) hypertension; E78.00 Pure hypercholesterolemia, unspecified; F41.9 Anxiety disorder, unspecified; G47.30 Sleep apnea, unspecified; I25.2 Old myocardial infarction; F32.9 Major depressive disorder, single episode, unspecified; W01.0XXA Fall on same level from slipping, tripping and stumbling without subsequent striking against object, initial encounter
CPT/HCPCS: 73630; 99284